=== PATIENT | female | born 1955 | race American Indian/Alaskan Native ===

== ENCOUNTER 2017-03-25 15:09 | Outpatient (CLI) | payer OTHER ==
--- NOTE | 2017-03-26 08:05 | XRay Report ---
XRAY RIGHT KNEE 4 THREE VIEWS: 03/25/17 15:09:00 CLINICAL: Pain FINDINGS: Mild medial joint space osteoarthritis with mild narrowing of joint space and small osteophytes. The lateral joint space is normal. Mild patellofemoral joint osteoarthritis. No fracture or dislocation. No joint effusion.Patellar enthesophytes and lateral soft tissue calcifications. Calcifications of the vastus lateralis muscle. IMPRESSION: Medial and patellofemoral joint osteoarthritis. Benign soft tissue calcifications. Patellar enthesopathy.
== END 2017-03-25 15:10 | disposition home or self-care (01) ==
LOC: SPVIMAG 15:09
PROVIDERS: ATTEND Orthopaedic Surgery
DX: M17.11 Unilateral primary osteoarthritis, right knee (principal); M25.761 Osteophyte, right knee; M25.861 Other specified joint disorders, right knee